=== PATIENT | female | born 1965 | race Hispanic/Latino ===

== ENCOUNTER 2017-01-08 07:16 | Day surgery (SDC) | payer OTHER ==
--- NOTE | 2017-01-08 07:57 | OR ---
Anesthesia Pre Procedure Eval Pre Procedure Evaluation: Last Vital Signs Temp 36.0 C L 01/08/17 07:23 Pulse 79 01/08/17 07:23 Resp 16 01/08/17 07:23 BP 111/80 01/08/17 07:23 Pulse Ox 96 01/08/17 07:23 PRE PROCEDURE EVALUATION:: DATE: 01/08/2017 TIME: 45 INDICATIONS: Radicular low back pain. Bulging disc L5-S1 PAST MEDICAL HISTORY: No previous lumbar epidural injections EXAM: Lungs clear and equal. Heart rate regular. Patient complains of radicular low back pain with pain radiating into her hips and and legs bilaterally. Procedure risks and benefits were explained to and accepted by the patient. ASSESSMENT OF MEDICAL STATUS: No contraindication to epidural injection PLANNED PROCEDURE : Fluoroscopy guided epidural injection at L5-S1. Home Medications: HOME MEDICATIONS Cyclobenzaprine HCl [Flexeril] 10 mg PO TID PRN 09/20/13 [Last Taken Unknown] Levothyroxine Sodium [Synthroid] 125 mcg PO DAILY 09/20/13 [Last Taken Unknown] Metoprolol Succinate [Toprol Xl] 100 mg PO DAILY 09/20/13 [Last Taken 01/07/17 08:30] Hydrochlorothiazide [Hydrodiuril] 25 mg PO DAILY 07/15/15 [Last Taken Unknown] Omeprazole [Prilosec] 40 mg PO DAILY 07/15/15 [Last Taken Unknown] Alprazolam [Xanax Xr] 0.5 mg PO BID PRN 01/06/17 [Last Taken Unknown] Atorvastatin Calcium [Lipitor] 10 mg PO DAILY 01/06/17 [Last Taken Unknown] Calc/D3/Mag/Zn/Mechanical Specialist/Del/[place] [Calcium 600 mg Plus Vit D Tab] 2 tab PO DAILY [Last Taken Unknown] Cholecalciferol (Vitamin D3) [Vitamin D3] 1,000 unit PO DAILY 01/06/17 [Last Taken Unknown] Duloxetine HCl [Cymbalta] 60 mg PO BID 01/06/17 [Last Taken Unknown] Gabapentin [Neurontin] 300 mg PO TID 01/06/17 [Last Taken Unknown] Ibuprofen [Motrin] 400 mg PO TIDWM PRN 01/06/17 [Last Taken Unknown] Multivitamins-Min/FA/Ginkgo [One Daily Women 50 Plus Tab] 1 each PO DAILY [Last Taken Unknown] Oxycodone HCl/Acetaminophen [Oxycodone-Acetaminophen 5-325] 1 each PO Q6H PRN [Last Taken Unknown] amLODIPine BESYLATE [Norvasc] 5 mg PO DAILY 01/06/17 [Last Taken Unknown] valACYclovir HCL [Valtrex] 500 mg PO DAILY 01/06/17 [Last Taken Unknown]
[2017-01-08] MEDS ORDERED: IOPAMIDOL 20 ML VIAL IJ ONE (08:09)
[2017-01-08] MEDS ORDERED: DEXAMETHASONE SOD PHOSPHATE 10 MG/ML VIAL IJ ONE (08:09)
[2017-01-08] MEDS ORDERED: LIDOCAINE HCL/PF 5 ML VIAL IJ ONE (08:09)
--- NOTE | 2017-01-08 08:24 | OR ---
Anesthesia Procedure Note - Anesthesia Procedure Note Narrative: Vital Signs - Last Taken Temp 36.5 C 01/08/17 08:15 Pulse 92 01/08/17 08:15 Resp 16 01/08/17 08:15 BP 121/81 01/08/17 08:15 Pulse Ox 95 01/08/17 08:15 O2 Oxygen Delivery Method Room Air 01/08/17 08:20 ANESTHESIA PROCEDURE NOTE Date of Procedure: 01/08/2017 Time of procedure: 804. Performed by: Domingo Michaels CRNA Moving Van Driver: None. Preprocedure diagnosis: Radicular low back pain. Bulging disc L5-S1. Post procedure diagnosis: Same. Procedure: Epidural Steroid Injection at L5-S1 under fluoroscopic guidance. Indications: Radicular low back pain. Findings: See below. Details of the procedure: The patient was brought back to operating room #2. The patient was then placed in the prone position. Back was prepped with DuraPrep. Patient was then draped in sterile fashion. Lidocaine 1% was infiltrated to the skin and subcutaneous tissues at the level of the L5-S1 interspace. The epidural space was identified using a 20-gauge Tuohy needle with [id number] technique and fluoroscopic guidance. A total of 3 mL of Isovue-200 contrast dye was injected in first the lateral and then AP positions to confirm needle placement. Dexamethasone 10 mg + 5 mL of 1% preservative-free lidocaine was administered to the epidural space after negative aspiration for blood and CSF. The Tuohy needle was removed intact. A Band-Aid was applied to the patient's back. The patient was then placed in a supine position for 5 minutes before returning to the ambulatory surgical unit. Total 24.2 seconds of fluoroscopy time and 18.16 m/gy were utilized. EBL: Minimal. Fluids: N/A. Specimen: N/A. Post procedure condition: The patient tolerated the procedure well. No complications were noted. Thank you for this consultation. Domingo Michaels CRNA
[2017-01-08 08:49] VITALS: BP 111/78
== END 2017-01-08 07:17 | disposition home or self-care (01) ==
LOC: AMB 07:16
PROVIDERS: ATTEND Family Medicine
PROC: 3E0S3BZ Introduction of Anesthetic Agent into Epidural Space, Percutaneous Approach (ICD-10-PCS; 2017-01-08)
PROC: 3E0S33Z Introduction of Anti-inflammatory into Epidural Space, Percutaneous Approach (ICD-10-PCS; principal; 2017-01-08 08:00)
DX: M51.27 Other intervertebral disc displacement, lumbosacral region (principal)

== ENCOUNTER 2017-03-24 14:36 | Day surgery (SDC) | payer OTHER ==
[~2017-03-24 14:36] MED LIST: RINGERS SOLUTION,LACTATED 1,000 ML IV ONE; RINGERS SOLUTION,LACTATED 1,000 ML IV PRN
[2017-03-24] MEDS ORDERED: RINGERS SOLUTION,LACTATED 1,000 ML IV PRN (15:58)
[2017-03-24 16:57] VITALS: BP 114/76
--- NOTE | 2017-03-24 17:58 | OR ---
Operative Report - Dictated Report Narrative: OPERATIVE REPORT DATE OF OPERATION: 03/24/2017 PREOPERATIVE DIAGNOSIS: No recent dedicated colon studies POSTOPERATIVE DIAGNOSIS: Sigmoid diverticulosis OPERATION: Colonoscopy SURGEON: Oral Silver MD ANESTHESIA: RAMOS Schmid CRNA INDICATIONS FOR PROCEDURE: The patient is a 51-year-old female referred by Dr. Porras. The patient's last colonoscopy was in approximately 1999 and was normal. There is no family history of colon cancer. The patient has a tendency to constipation. FINDINGS: Moderate diverticulosis otherwise normal colonoscopy to the cecum NARRATIVE OF PROCEDURE: The patient was identified in the holding area, and prior to the administration of anesthetic, a multidisciplinary timeout was observed. With the patient in the left lateral position and after the administration of intravenous sedation, the perineum was inspected. There was no evidence of pilonidal disease or skin breakdown. The external appearance of the anus was normal. Sphincter tone was good. The flexible fiberoptic colonoscope was inserted into the rectum which was insufflated with air. The rectal mucosa and submucosal vascular pattern appeared normal, the prep was seen to be complete. The scope was advanced through the sigmoid colon, which contained numerous non-impacted noninflamed diverticular openings. The scope was advanced up the descending colon, and around the splenic flexure where the triangular haustral architecture of the transverse colon was seen. The scope was advanced across the transverse colon, around the hepatic flexure to the cecum, where the confluence of tenia and the ileocecal valve were identified. The mucosa at this level appeared normal. The scope was then slowly withdrawn in a circular fashion so that all aspects of colonic mucosa were inspected. The colon was relatively normal in course and caliber. The haustral architecture appeared well preserved throughout with no evidence of external compression. The mucosa and submucosal vascular pattern appeared normal, specifically there was no gross evidence to suggest colitis or inflammatory bowel disease and no AV malformations were seen. The diverticulosis was moderate in degree and confined primarily to the sigmoid colon although several scattered proximal diverticula were present as well. No polyps were encountered. The scope was gradually withdrawn to the level of the rectum. As much insufflated air as possible was removed. The scope was withdrawn from the patient and the procedure terminated. The patient tolerated the anesthetic and procedure well without complication and was transferred back to the ambulatory surgery area awake and in stable condition. The patient remained stable throughout a period of postoperative observation. She denied abdominal discomfort, was able to tolerate by mouth intake, and was up without assistance. I shared the operative findings with the patient and she was given copies of the photographs which appear in the medical record. She was discharged home with instructions not to engage in hazardous activity today , but may resume normal activity tomorrow, and advance diet as tolerated. She is to continue those medications as listed in the history and physical exam. A pamphlet on diverticular disease was reviewed with her and given to her RECOMMENDATION: Colon surveillance in 10 years depending upon findings and symptoms Reviewed and electronically signed
== END 2017-03-24 14:37 | disposition home or self-care (01) ==
LOC: AMB 14:36
PROVIDERS: ATTEND Surgery
PROC: 0DJD8ZZ Inspection of Lower Intestinal Tract, Via Natural or Artificial Opening Endoscopic (ICD-10-PCS; principal; 2017-03-24 15:30)
DX: Z12.11 Encounter for screening for malignant neoplasm of colon (principal); K57.30 Diverticulosis of large intestine without perforation or abscess without bleeding; I10 Essential (primary) hypertension; K21.9 Gastro-esophageal reflux disease without esophagitis; E78.5 Hyperlipidemia, unspecified; E03.9 Hypothyroidism, unspecified; E55.9 Vitamin D deficiency, unspecified; D64.9 Anemia, unspecified; F17.200 Nicotine dependence, unspecified, uncomplicated; Z68.37 Body mass index [BMI] 37.0-37.9, adult

== ENCOUNTER 2017-10-22 07:21 | Day surgery (SDC) | payer OTHER ==
--- NOTE | 2017-10-22 07:52 | OR ---
Anesthesia Pre Procedure Eval Pre Procedure Evaluation: Last Vital Signs Temp 36.1 C L 10/22/17 07:33 Pulse 79 10/22/17 07:33 Resp 16 10/22/17 07:33 BP 108/75 10/22/17 07:33 Pulse Ox 97 10/22/17 07:33 PRE PROCEDURE EVALUATION:: DATE: 10/22/2017 TIME: 45 INDICATIONS: Radicular low back pain. Bulging disc L4 5 and L5-S1. PAST MEDICAL HISTORY: Previous epidural steroid injection in December of this year. Patient received significant pain relief from that injection EXAM: Lungs clear and equal. Heart rate regular. Patient complains of low back pain radiating into her legs bilaterally. Her right leg pain is worse in her left ASSESSMENT OF MEDICAL STATUS: Procedure risks and benefits were explained to and accepted by the patient. No contraindication to epidural steroid injection PLANNED PROCEDURE : Fluoroscopy-guided epidural steroid injection Home Medications: HOME MEDICATIONS Cyclobenzaprine HCl [Flexeril] 10 mg PO TID PRN 09/20/13 [Last Taken Unknown] Levothyroxine Sodium [Synthroid] 125 mcg PO DAILY 09/20/13 [Last Taken Unknown] Metoprolol Succinate [Toprol Xl] 100 mg PO DAILY 09/20/13 [Last Taken 03/24/17 10:00] Omeprazole [Prilosec] 40 mg PO DAILY 07/15/15 [Last Taken Unknown] Atorvastatin Calcium [Lipitor] 10 mg PO HS 01/06/17 [Last Taken Unknown] Duloxetine HCl [Cymbalta] 60 mg PO QAM 01/06/17 [Last Taken Unknown] Gabapentin [Neurontin] 300 mg PO TID 01/06/17 [Last Taken Unknown] Ibuprofen [Motrin] 400 mg PO Q6H PRN 01/06/17 [Last Taken Unknown] oxyCODONE HCL/ACETAMINOPHEN [Oxycodone-Acetaminophen 5-325] 1 each PO Q6H PRN [Last Taken Unknown] Duloxetine HCl [Cymbalta] 30 mg PO HS 03/05/17 [Last Taken Unknown] ALPRAZolam [Xanax] 1 mg PO BID PRN 08/28/17 [Last Taken Unknown] Topiramate [Topamax] 50 mg PO DAILY 08/28/17 [Last Taken Unknown] Cyanocobalamin/Folic Acid [Foltrate Tablet] 1 each PO DAILY 10/21/17 [Last Taken Unknown]
[2017-10-22] MEDS ORDERED: IOPAMIDOL 20 ML VIAL IJ ONE (08:13)
[2017-10-22] MEDS ORDERED: DEXAMETHASONE SOD PHOSPHATE 10 MG/ML VIAL IJ ONE (08:13)
[2017-10-22] MEDS ORDERED: LIDOCAINE HCL/PF 5 ML VIAL IJ ONE (08:13)
--- NOTE | 2017-10-22 08:28 | OR ---
Anesthesia Procedure Note - Anesthesia Procedure Note Narrative: Vital Signs - Last Taken Temp 36.1 C L 10/22/17 07:33 Pulse 79 10/22/17 07:33 Resp 16 10/22/17 07:33 BP 108/75 10/22/17 07:33 Pulse Ox 97 10/22/17 07:33 10/22/17 08:24 ANESTHESIA PROCEDURE NOTE Date of Procedure: 10/22/2017 Time of procedure: 07 03. Performed by: Domingo Michaels CRNA Summer Internship: None. Preprocedure diagnosis: Radicular low back pain. Bulging disc at L5-S1.. Post procedure diagnosis: Same. Procedure: Epidural Steroid Injection at L5-S1. Indications: Radicular low back pain. Findings: See below. Details of the procedure: The patient was brought back to operating room #3. The patient was then placed in the prone position. Back was prepped with DuraPrep. Patient was then draped in sterile fashion. Lidocaine 1% was infiltrated to the skin and subcutaneous tissues at the level of the L5-S1 interspace. The epidural space was identified using a 20-gauge Tuohy needle with [id number] technique and fluoroscopic guidance. A total of 3 mL of Isovue-200 contrast dye was injected in first the AP and lateral positions to confirm needle placement. Dexamethasone 10 mg + 5 mL of 1% preservative- free lidocaine was administered to the epidural space after negative aspiration for blood and CSF. The Tuohy needle was removed intact. A Band-Aid was applied to the patient's back. The patient was then placed in a supine position for 5 minutes before returning to the ambulatory surgical unit. Total fluoroscopy time 21.8 seconds. Total dose is 11.8 m/gy. EBL: Minimal. Fluids: N/A. Specimen: N/A. Post procedure condition: The patient tolerated the procedure well. No complications were noted. Thank you for this consultation. Domingo Michaels CRNA
[2017-10-22 08:53] VITALS: BP 123/81
== END 2017-10-22 07:22 | disposition home or self-care (01) ==
LOC: AMB 07:21
PROVIDERS: ATTEND Family Medicine
PROC: 3E0R33Z Introduction of Anti-inflammatory into Spinal Canal, Percutaneous Approach (ICD-10-PCS; 2017-10-22)
PROC: B01BZZZ Fluoroscopy of Spinal Cord (ICD-10-PCS; 2017-10-22)
PROC: 3E0R3BZ Introduction of Anesthetic Agent into Spinal Canal, Percutaneous Approach (ICD-10-PCS; principal; 2017-10-22 08:00)
DX: M51.27 Other intervertebral disc displacement, lumbosacral region (principal); Z68.34 Body mass index [BMI] 34.0-34.9, adult